=== PATIENT | female | born 1960 | race Caucasian/White ===

== ENCOUNTER → 2022-03-20 | Outpatient (CLI) | payer OTHER ==
[2022-03-21 15:11] LABS: HPV 16 Negative (Negative); HPV 18 Negative (Negative); HPV OTHER HR TYPES Negative (Negative)
== END | disposition home or self-care (01) ==
LOC: LAB 13:42 → LAB SHORT 13:42
PROVIDERS: Obstetrics & Gynecology
DX: P04.18 Newborn affected by other maternal medication (principal)
CPT/HCPCS: 87624; G0123

== ENCOUNTER 2023-03-17 13:52 | Day surgery (SDC) | payer OTHER ==
[~2023-03-17] VITALS: Ht 165.1 cm; Wt 77.6 kg
--- NOTE | 2023-03-17 14:38 | NUR ---
03/17/23 1438 Ivette Lopez 1436 TETRACAINE TO LEFT EYE 1438 PLEDGET TO LEFT EYE BY [facility].[email or web address]
[2023-03-17 15:42] VITALS: BP 118/70
== END 2023-03-17 15:58 | disposition home or self-care (01) ==
LOC: ORSCSDS 13:52
PROVIDERS: Ophthalmology
PROC: 08RK3JZ Replacement of Left Lens with Synthetic Substitute, Percutaneous Approach (ICD-10-PCS; principal; 2023-03-17 15:00)
DX: H25.12 Age-related nuclear cataract, left eye (principal); F41.9 Anxiety disorder, unspecified
CPT/HCPCS: J2250; J3010; J3301; J7040; V2632

== ENCOUNTER 2023-12-22 11:03 | Day surgery (SDC) | payer OTHER ==
[~2023-12-22] VITALS: Ht 165.1 cm; Wt 71.1 kg
[2023-12-22] VITALS (13 sets, daily range): BP systolic 101–152; BP diastolic 56–94
[~2023-12-22 11:03] MED LIST: HYDACE10B PO; MULVITA PO
[2023-12-22] MEDS ORDERED: Tranexamic Acid 710 MG in NS 100 ML IV SCH (12:55)
[2023-12-22] MEDS ORDERED: OxyCODONE HCL 10 MG TABCR PO SCH (12:55)
[2023-12-22] MEDS ORDERED: Ropivacaine 0.5% HCl/Pf 67.75 MG,EPINEPHrine HCL 0.25 MG,Ketorolac Tromethamine 15 MG,C... INFIL SCH (12:55)
[2023-12-22] MEDS ORDERED: Lactated Ringer's 1,000 ML IV SCH ×2 (12:55→13:25)
[2023-12-22] MEDS ORDERED: Acetaminophen 500 MG Tab PO SCH ×2 (12:55→16:00)
[2023-12-22] MEDS ORDERED: CeFAZolin Sodium 2,000 MG in NS 50 ML IV SCH ×2 (12:55→22:00)
[2023-12-22] MEDS ORDERED: Chlorhexidine Mouth Care 15 ML UDC MT SCH (12:55)
[2023-12-22] MEDS ORDERED: BUSP5 PO (13:10)
[2023-12-22] MEDS ORDERED: OxyCODONE HCL 5 MG TAB PO PRN ×2 (13:15→13:25)
[2023-12-22] MEDS ORDERED: Promethazine HCl 25 MG Tab PO PRN (13:15)
[2023-12-22] MEDS ORDERED: HYDROmorphone HCl/Pf 1MG SYR IV PRN (13:20)
[2023-12-22] MEDS ORDERED: Bisacodyl 10 MG Supp PR PRN (13:20)
[2023-12-22] MEDS ORDERED: FLU VACC QS2023-24(6MOS UP)/PF 60 MCG/0.5 ML SYRINGE IM ONE (13:20)
[2023-12-22] MEDS ORDERED: DiphenhydrAMINE HCL 25 MG Cap PO PRN (13:20)
[2023-12-22] MEDS ORDERED: Magnesium Hydroxide Conc 10 ML UDC PO PRN (13:25)
[2023-12-22] MEDS ORDERED: Metoclopramide HCl 5MG / ML 2ML Vial IV PRN (13:25)
[2023-12-22] MEDS ORDERED: Ondansetron HCl 2 MG / ML 2ML Vial IV PRN (13:25)
[2023-12-22] MEDS ORDERED: Midazolam HCl 1MG / ML 2ML Vial IV ONE (13:30)
--- NOTE | 2023-12-22 13:47 | NUR ---
JAGRUTI SENT HOME WITH FRIEND, TRELL.
[2023-12-22] MEDS ORDERED: Midazolam HCl 1MG / ML 2ML Vial ONE (13:51)
[2023-12-22] MEDS ORDERED: FentaNYL Citrate 50 MCG/ML 2 ML Injection ONE (13:51)
[2023-12-22] MEDS ORDERED: propofoL 40 ML IV ONE (14:06)
[2023-12-22] MEDS ORDERED: ePHEDrine Sulfate 50 MG/ML 1ML Injection ONE (14:53)
[2023-12-22] MEDS ORDERED: propofoL 20 ML IV ONE (15:15)
[2023-12-22] MEDS ORDERED: Ketorolac Tromethamine 15mg Vial IV SCH (18:00)
[2023-12-22] MEDS ORDERED: BusPIRone HCl 5 MG Tab PO PRN (19:25)
[2023-12-22] MEDS ORDERED: Docusate Sodium 100 MG Cap PO SCH (21:00)
[2023-12-23 04:59] VITALS: BP 121/73
[2023-12-23 05:32] LABS: BASOPHILS ABSOLUTE AUTO 0.02 K/mm3 (0.00-0.23); BASOPHILS PERCENT AUTO 0 % (0-2); EOSINOPHILS ABSOLUTE AUTO 0.12 K/mm3 (0.00-0.68); EOSINOPHILS PERCENT AUTO 2 % (0-6); Hematocrit 31.9 % (33.0-51.0); Hemoglobin 11.1 g/dL (11.5-16.0); IMMATURE GRAN ABSOLUTE AUTO 0.01 K/mm3 (0.00-0.10); IMMATURE GRAN PERCENT AUTO 0 % (0-1); LYMPHOCYTES ABSOLUTE AUTO 1.41 K/mm3 (0.84-5.20); LYMPHOCYTES PERCENT AUTO 21 % (21-46); MONOCYTES PERCENT AUTO 6 % (4-13); Mean Corpuscular HGB 32.3 pg (26.0-34.0); Mean Corpuscular HGB Conc 34.8 g/dL (31.5-36.5); Mean Corpuscular Volume 93 fL (80-100); Mean Platelet Volume 9.4 fL (9.1-12.4); NEUTROPHILS ABSOLUTE AUTO 4.69 K/mm3 (1.96-9.15); NEUTROPHILS PERCENT AUTO 71 % (41-73); Platelet Count 147 K/mm3 (150-400); RDW Standard Deviation 40.8 fL (35.1-46.3); Red Blood Cell Count 3.44 M/mm3 (3.80-5.20); White Blood Cell Count 6.65 K/mm3 (4.00-11.30)
--- NOTE | 2023-12-23 06:28 | NUR ---
SHIFT SUMMARY PT POD 0 L TKA, PT HAS RESTED T/O THE SHIFT. VOIDING, TOLERATING PO INTAKE, AND AMBULATING. SURGICAL DRESSING C/D/I. PT DENIES N/T IN EXT. PT UP IN RECLINER THIS AM. PLAN IS FOR PT/OT EVAL AND DISCHARGE TODAY.
[2023-12-23 06:50] LABS: Bun/Creatinine Ratio 17.8 (12.0-20.0); Calcium, Blood 8.4 mg/dL (8.5-10.1); Creatinine, Blood 0.67 mg/dL (0.40-1.00); Potassium, Blood 3.8 mmol/L (3.5-5.5)
[2023-12-23 07:00] VITALS: BP 122/67
[2023-12-23] MEDS ORDERED: ASPI81CH PO (08:30)
[2023-12-23] MEDS ORDERED: Multivitamins 1 Tab PO SCH (09:00)
[2023-12-23] MEDS ORDERED: Aspirin 81 MG Chew PO SCH (09:00)
[2023-12-23] MEDS ORDERED: Percocet 5-3251 EACH PO (09:43)
--- NOTE | 2023-12-23 10:05 | NUR ---
DISCHARGE NOTE: PATIENT WAS EDUCATED ON DISCHARGE INSTRUCTIONS. SHE VERBALIZED UNDERSTANDING OF INSTRUCTIONS AND HAD NO FURTHER QUESTIONS AT THIS TIME. IV WAS TAKEN OUT AND WNL. HARD PERSCRIPTIONS WERE PLACED IN PATIENTS DISCHARGE FOLDER WHICH IS WITH THE PATIENT. HER LEFT KNEE HAS AN AQUACEL DRESSING THAT IS C/D/I. SHE DENIES NUMBNESS OR TINGLING THROUGHOUT ALL EXTREMITIES. PATIENT IS A SBA WITH FWW AND GAIT BELT. SHE IS TOLERATING PO INTAKE AND IS VOIDING/PASSING GAS. PAIN IS MANAGED WITH PO PAIN MEDS AND PRN PO ANXIETY MEDS. PATIENT IS CURRENTLY LAYING IN HER RECLINER CHAIR WITH CALL LIGHT IN REACH WAITING FOR HER RIDE TO COME PICK HER UP TO TAKE HER HOME. PATIENT ALSO HAS X2 EXTRA AQUACEL DRESSINGS WITH HER DISCHARGE FOLDER FOR HOME WELL.
== END 2023-12-23 10:59 | disposition home or self-care (01) ==
LOC: ORSCMMR 11:03 → ORD 12:30 → ORSCMMR 12:30 → SURS 16:32 → ORSCMMR 12-23 10:59
PROVIDERS: Orthopaedic Surgery
PROC: 0SRD0JA Replacement of Left Knee Joint with Synthetic Substitute, Uncemented, Open Approach (ICD-10-PCS; principal; 2023-12-22 13:00)
DX: M17.12 Unilateral primary osteoarthritis, left knee (principal); F41.9 Anxiety disorder, unspecified
CPT/HCPCS: 36415; 73560-LT; 80048; 85025; 97110; 97116; 97161; 97530; A9270; C1713; C1776; J0171; J0690; J0735; J1885; J2250; J2704; J2795; J3010; J7120